=== PATIENT | male | born 1980 | race Caucasian/White ===

== ENCOUNTER 2017-08-04 23:32 | Emergency (ER) | payer OTHER ==
[2017-08-04 23:54] VITALS: BP 137/80; PULSE 90; TEMP 98.3; BMI 28.2
--- NOTE | 2017-08-05 00:26 | PDOC ---
History of Present Illness - General History Source: Patient Exam Limitations: No Limitations - History of Present Illness Initial Comments: 08/05/17 01:35 The patient is a 37-year-old male, with a significant past medical history of HTN, hypercholesterolemia, and cardioversion (2014), who presents to the ED with one month of left-sided chest pain and neck pain. Pt's chest pain has now become more constant, radiating down his left arm. He reports that he is unable to turn his neck due to pain. The patient was diagnosed with tachycardia 2 years ago and has not been on any medications. He denies any shortness of breath. He denies any fever, chills, nausea, vomiting , diarrhea, or abdominal pain. <Nicole Gilmore - Last Filed: 08/05/17 01:35> <Padma Howell - Last Filed: 08/06/17 06:30> - General Chief Complaint: Pain, Acute Stated Complaint: NECK PAIN Time Seen by Provider: 08/04/17 23:48 Past History <Nicole Gilmore - Last Filed: 08/05/17 01:35> - Past Medical History Cardiac Disorders: Yes HTN: Yes Hypercholesterolemia: Yes - Surgical History Cardiac Surgery: Yes (CARDIOVERSION) - Immunization History Td Vaccination: Yes Immunization Up to Date: Yes - Suicide/Smoking/Psychosocial Hx Smoking Status: Yes Smoking History: Never smoked Years of Tobacco Use: 0 Have you smoked in the past 12 months: No Number of Cigarettes Smoked Daily: 1 Cigars Per Day: 0 Information on smoking cessation initiated: No 'Breaking Loose' booklet given: 11/16/13 Hx Alcohol Use: No Drug/Substance Use Hx: No Substance Use Type: Alcohol, Marijuana <Padma Howell - Last Filed: 08/06/17 06:30> - Past Medical History Allergies/Adverse Reactions: Allergies Allergy/AdvReac Type Severity Reaction Status Date / Time No Known Allergies Allergy Verified 08/04/17 23:53 Home Medications: Ambulatory Orders Ibuprofen [Motrin -] 600 mg PO QID #28 tablet 08/05/17 Methocarbamol [Robaxin -] 500 mg PO TID #30 tablet 08/05/17 Review of Systems - Review of Systems Able to Perform ROS?: Yes Comments:: 08/05/17 01:35 CONSTITUTIONAL: Absent: fever, chills, diaphoresis, generalized weakness, malaise, loss of appetite HEENT: Absent: rhinorrhea, nasal congestion, throat pain, throat swelling, difficulty swallowing, mouth swelling, ear pain, eye pain, visual Changes CARDIOVASCULAR: Present: chest pain Absent: syncope, palpitations, irregular heart rate, lightheadedness, peripheral edema RESPIRATORY: Absent: cough, shortness of breath, dyspnea with exertion, orthopnea, wheezing, stridor, hemoptysis GASTROINTESTINAL: Absent: abdominal pain, abdominal distension, nausea, vomiting, diarrhea, constipation, melena, hematochezia GENITOURINARY: Absent: dysuria, frequency, urgency, hesitancy, hematuria, flank pain, genital pain MUSCULOSKELETAL: Present: neck pain, left arm pain. Absent: arthralgia, joint swelling SKIN: Absent: rash, itching, pallor HEMATOLOGIC/IMMUNOLOGIC: Absent: easy bleeding, easy bruising, lymphadenopathy, frequent infections ENDOCRINE: Absent: unexplained weight gain, unexplained weight loss, heat intolerance, cold intolerance NEUROLOGIC: Absent: headache, focal weakness or paresthesias, dizziness, unsteady gait, seizure, mental status changes, bladder or bowel incontinence PSYCHIATRIC: Absent: anxiety, depression, suicidal or homicidal ideation, hallucinations. <Nicole Gilmore - Last Filed: 08/05/17 01:35> *Physical Exam - Vital Signs Last Vital Signs Temp Pulse Resp BP Pulse Ox 98.3 F 90 20 137/80 98 08/04/17 23:53 08/04/17 23:53 08/04/17 23:53 08/04/17 23:53 08/04/17 23:53 - Physical Exam Comments: 08/05/17 01:37 GENERAL: Well developed, well nourished. Awake and alert.(+)Pt appears nervous. HEENT: Normocephalic, atraumatic. PERRLA, EOMI. No conjunctival pallor. Sclera are non- icteric. Moist mucous membranes. Oropharynx is clear. NECK: Supple. Full ROM. No JVD. Carotid pulses 2+ and symmetric, without bruits. No thyromegaly. No lymphadenopathy. CARDIOVASCULAR: Regular rate and rhythm. No murmurs, rubs, or gallops. Distal pulses are 2+ and symmetric. PULMONARY: No evidence of respiratory distress. Lungs clear to auscultation bilaterally. No wheezing, rales or rhonchi. ABDOMINAL: Soft. Non-tender. Non-distended. No rebound or guarding. No organomegaly. Normoactive bowel sounds. MUSCULOSKELETAL Normal range of motion at all joints. No bony deformities or tenderness. No CVA tenderness. EXTREMITIES: No cyanosis. No clubbing. No edema. No calf tenderness. SKIN: Warm and dry. Normal capillary refill. No rashes. No jaundice. NEUROLOGICAL: Alert, awake, appropriate. <Nicole Gilmore - Last Filed: 08/05/17 01:35> - Vital Signs Last Vital Signs Temp Pulse Resp BP Pulse Ox 98.3 F 90 20 137/80 98 08/04/17 23:53 08/04/17 23:53 08/04/17 23:53 08/04/17 23:53 08/04/17 23:53 <Padma Howell - Last Filed: 08/06/17 06:30> ED Treatment Course - LABORATORY CBC & Chemistry Diagram: 08/05/17 00:05 08/05/17 00:05 - Medications Given in the ED: ED Medications Discontinued Medications Generic Name Dose Route Start Last Admin Trade Name Etienne PRN Reason Stop Dose Admin Ibuprofen 600 mg 08/05/17 00:28 08/05/17 00:57 Motrin - PO 08/05/17 00:29 600 mg ONCE ONE Administration Methocarbamol 1,000 mg 08/05/17 00:27 08/05/17 00:57 Robaxin - PO 08/05/17 00:28 1,000 mg ONCE ONE Administration Oxycodone/Acetaminophen 2 combo 08/05/17 00:27 08/05/17 00:57 Percocet 5/325 - PO 08/05/17 00:28 2 combo ONCE ONE Administration <Nicole Gilmore - Last Filed: 08/05/17 01:35> - LABORATORY CBC & Chemistry Diagram: 08/05/17 00:05 08/05/17 00:05 <Padma Howell - Last Filed: 08/06/17 06:30> Medical Decision Making - Medical Decision Making 08/05/17 01:39 Pt comes with trapezius pain; he is worried that this could be related to his heart. Exam is normal. Labs normal, ekg and cxr normal <Padma Howell - Last Filed: 08/06/17 06:30> *DC/Admit/Observation/Transfer - Attestations Scribe Attestion: 08/05/17 01:39 Documentation prepared by Nicole Gilmore, acting as bio medical technician for Padma Howell MD. <Nicole Gilmore - Last Filed: 08/05/17 01:35> - Discharge Dispostion Admit: No <Padma Howell - Last Filed: 08/06/17 06:30> Diagnosis at time of Disposition: Chest pain, Atypical chest pain - Discharge Dispostion Disposition: HOME Condition at time of disposition: Stable - Prescriptions Prescriptions: Ibuprofen [Motrin -] 600 mg PO QID #28 tablet Methocarbamol [Robaxin -] 500 mg PO TID #30 tablet - Patient Instructions Printed Discharge Instructions: Muscle Strain, DI for Atypical Chest Pain
[2017-08-05] MEDS ORDERED: METHOCARBAMOL 500 MG TABLET PO ONE (00:27)
[2017-08-05] MEDS ORDERED: IBUPROFEN 600 MG TABLET (FP) PO ONE ×2 (00:28→00:42)
[2017-08-05] MEDS ORDERED: METHOCARBAMOL 500 MG TABLET ONE (00:42)
[2017-08-05 01:15] LABS: BASO % 0.6 % (0-2.0); EOS # 0.2 # (0-4.5); EOS % 2.3 % (0-4.5); LYMPH # 2.1 (8-40); MCHC 33.5 g/dl (32.0-35.9); MEAN CELL VOLUME 83.5 fl (80-96); MEAN PLT VOLUME 10.4 fl (7.5-11.1); MONO # 0.5 # (3.8-10.2); NEUT # 4.3 # (42.8-82.8); NEUT % 60.3 % (42.8-82.8); PLATELET COUNT 166 K/MM3 (134-434); RDW 13.2 % (11.9-15.9); WHITE BLOOD COUNT 7.1 K/mm3 (4.0-10.0)
[2017-08-05 01:38] LABS: INR 1.04 (0.82-1.09); PROTHROMBIN TIME (PATIENT) 11.8 SEC (9.98-11.88)
[2017-08-05 01:43] LABS: ANION GAP 6 (8-16); BILIRUBIN,TOTAL 0.4 mg/dL (0.2-1.0); CALCIUM 8.9 mg/dL (8.5-10.1); CO2 29 mmol/L (21-32); CREATININE 0.9 mg/dL (0.7-1.3); GLUCOSE,RANDOM 110 mg/dL (74-106); SGOT/AST 13 U/L (15-37); SGPT/ALT 20 U/L (12-78); TOT PROT 6.8 g/dl (6.4-8.2)
[2017-08-05 01:46] LABS: ALK PHOS 85 U/L (45-117); CPK 169 IU/L (39-308); TROPONIN I < 0.02 ng/ml (0.00-0.05)
--- NOTE | 2017-08-05 16:30 | EKG ---
Test Reason : Blood Pressure : / mmHG Vent. Rate : 076 BPM Atrial Rate : 076 BPM P-R Int : 120 ms QRS Dur : 104 ms QT Int : 368 ms P-R-T Axes : 061 -24 003 degrees QTc Int : 414 ms NORMAL SINUS RHYTHM WITH SINUS ARRHYTHMIA NONSPECIFIC T WAVE ABNORMALITY ABNORMAL ECG WHEN COMPARED WITH ECG OF 11-FEB-2014 01:27, NO SIGNIFICANT CHANGE WAS FOUND Confirmed by REJI NEW MD ([id number]) on 08/05/2017 4:30:09 PM Referred By: Confirmed By:REJI NEW MD
== END 2017-08-05 03:12 | disposition home or self-care (01) ==
LOC: JER 23:32
DX: R07.89 Other chest pain (principal); I10 Essential (primary) hypertension; E78.00 Pure hypercholesterolemia, unspecified
CPT/HCPCS: 36415; 71020-TC; 73030-TC-LT; 80053; 82550; 82553; 84484; 85025; 85610; 93005; 93010; 99283-25

== ENCOUNTER 2017-08-15 20:43 | Emergency (ER) | payer OTHER ==
--- NOTE | 2017-08-15 21:00 | PDOC ---
Rapid Medical Evaluation Time Seen by Provider: 08/15/17 21:00 Medical Evaluation: Allergies Allergy/AdvReac Type Severity Reaction Status Date / Time No Known Allergies Allergy Verified 08/04/17 23:53 08/15/17 21:00 I have performed a brief in-person evaluation of this patient. The patient presents with a chief complaint of: Neck and L arm pain x 1 month. Dx w/ muscle pain 08/04/17 and given motrin and robaxin but meds does not help. Had neg shoulder film on last visit Pertinent physical exam findings:Exam unremarkable I have ordered the following: nothing The patient will proceed to the ED for further evaluation. 08/15/17 21:02
[2017-08-15 21:06] VITALS: BP 134/52; PULSE 99; TEMP 98.7; BMI 28.8
--- NOTE | 2017-08-15 21:37 | PDOC ---
History of Present Illness - General Chief Complaint: Cold Symptoms Stated Complaint: Cold Symptoms/ PAIN Time Seen by Provider: 08/15/17 21:00 History Source: Patient Exam Limitations: No Limitations - History of Present Illness Initial Comments: 08/15/17 21:40 37-year-old male with no medical history presents to the emergency department complaining of pain to the left trapezius muscle 4 weeks. Patient states he was cracking his neck 8 weeks ago and felt a slight discomfort to the left trapezius. Pain was described as 4/10 dull nonradiating intermittent discomfort without extremity numbness or tingling sensation, bladder or bowel dysfunction. Patient states the pain is exacerbated when he attempts to crack his neck but alleviated at rest. Patient denies headache, dizziness, lightheadedness, facial pains, neck stiffness, pain, back pains, chest pain, shortness of breath. Patient had an appointment with his PMD 3 days ago but canceled the appointment due to flu-like symptoms. Patient states he was given Percocet, Robaxin and Motrin for pain which alleviated his symptoms. Patient presents to the emergency department today for more pain medication. Patient presents today hoping to get an MRI because his friends told him that when you come to the emergency department, everyone with pain will get an MRI. Occurred: reports: other (x4 weeks) Pain Location: reports: other (left trapezius) Method of Injury: Yes: other (turning his neck x4 weeks ago) Past History - Past Medical History Allergies/Adverse Reactions: Allergies Allergy/AdvReac Type Severity Reaction Status Date / Time No Known Allergies Allergy Verified 08/15/17 21:06 Home Medications: Ambulatory Orders Ketorolac Tromethamine [Toradol] 10 mg PO TID #12 tablet 08/15/17 Cardiac Disorders: Yes (SVT) COPD: No HTN: Yes Hypercholesterolemia: Yes - Surgical History Cardiac Surgery: Yes (CARDIOVERSION) - Immunization History Td Vaccination: Yes Immunization Up to Date: Yes - Suicide/Smoking/Psychosocial Hx Smoking Status: Yes Smoking History: Never smoked Years of Tobacco Use: 0 Have you smoked in the past 12 months: No Number of Cigarettes Smoked Daily: 1 Cigars Per Day: 0 Information on smoking cessation initiated: No 'Breaking Loose' booklet given: 11/16/13 Hx Alcohol Use: No Drug/Substance Use Hx: No Substance Use Type: Alcohol, Marijuana *Physical Exam - Vital Signs Last Vital Signs Temp Pulse Resp BP Pulse Ox 98.7 F 99 H 18 134/52 0 L 08/15/17 21:03 08/15/17 21:03 08/15/17 21:03 08/15/17 21:03 08/15/17 21:03 Progress Note - Progress Note Progress Note: 37-year-old male with no medical history presents complaining of left-sided trapezius muscle strain 4 weeks ago. Patient was seen on 08/04/2017. Patient had an x-ray of the left shoulder, chest x-ray. All was NAD. Patient had an appointment with his PMD 3 days ago but canceled it due to flulike symptoms but will reschedule it again tomorrow. Patient returns to the emergency department for narcotics and a possible MRI. I explained to the patient he needs to follow with a specialist or his PMD and they will order an MRI if it is warranted. I will not be giving him narcotics but I can send a prescription for Toradol to the local pharmacy for him.Pt agrees with the plan. *DC/Admit/Observation/Transfer Diagnosis at time of Disposition: Muscle strain - Discharge Dispostion Disposition: HOME Condition at time of disposition: Stable Admit: No - Prescriptions Prescriptions: Ketorolac Tromethamine [Toradol] 10 mg PO TID #12 tablet - Referrals Referrals: Rolando Kolb MD [Staff Physician] - - Patient Instructions Printed Discharge Instructions: Muscle Strain Additional Instructions: Rest Tylenol for mild pain Toradol 10mg take 1 tablet by mouth three times a day for severe pain Follow up with Orthopedics/Dr. Kolb Return to the ED for severe/persistent/worsening symptoms It is imperative that you make the follow-up appointment with your doctor and orthopedic surgeon tomorrow. - Post Discharge Activity
== END 2017-08-15 22:06 | disposition home or self-care (01) ==
LOC: JERFT 20:43
DX: S16.1XXA Strain of muscle, fascia and tendon at neck level, initial encounter (principal); X58.XXXA Exposure to other specified factors, initial encounter; Y93.89 Activity, other specified; Y92.9 Unspecified place or not applicable; I10 Essential (primary) hypertension; I47.1 Supraventricular tachycardia; E78.00 Pure hypercholesterolemia, unspecified
CPT/HCPCS: 99281-25

== ENCOUNTER 2019-05-15 20:28 | Observation (INO) | payer SELFPAY ==
[2019-05-15] MEDS ORDERED: ASPIRIN 81 MG CHEWABLE TABLETS PO ONE (20:42)
--- NOTE | 2019-05-15 20:43 | PDOC ---
Rapid Medical Evaluation Time Seen by Provider: 05/15/19 20:41 Medical Evaluation: Allergies Allergy/AdvReac Type Severity Reaction Status Date / Time No Known Allergies Allergy Verified 08/15/17 21:06 05/15/19 20:42 CC: Intermittent left sided CP with dizziness. PE: reproducible pain to left ACW. RRR. No m/r/g. Orders: cardiac w/u Patient will proceed to ER for further evaluation. Discharge Disposition - Diagnosis Chest pain - Referrals - Patient Instructions - Post Discharge Activity
[2019-05-15 21:09] LABS: BASO % 0.6 % (0-2.0); EOS % 3.7 % (0-4.5); HEMATOCRIT 40.1 % (35.4-49); HEMOGLOBIN 13.3 GM/dL (11.7-16.9); MCH 28.1 pg (25.7-33.7); MCHC 33.1 g/dl (32.0-35.9); MEAN CELL VOLUME 84.8 fl (80-96); MEAN PLT VOLUME 9.8 fl (7.5-11.1); MONO % 7.9 % (3.8-10.2); NEUT % 49.8 % (42.8-82.8); PLATELET COUNT 158 K/MM3 (134-434); RBC 4.73 M/mm3 (4.00-5.60); RDW 12.9 % (11.9-15.9); WHITE BLOOD COUNT 5.5 K/mm3 (4.0-10.0)
[2019-05-15 21:20] LABS: INR 0.95 (0.83-1.09); PROTHROMBIN TIME (PATIENT) 11.2 SEC (9.7-13.0)
--- NOTE | 2019-05-15 21:26 | PDOC ---
History of Present Illness - General Chief Complaint: Chest Pain Stated Complaint: CHEST PAINS/HEADACHE/DIZZINESS Time Seen by Provider: 05/15/19 20:41 Past History - Past Medical History Allergies/Adverse Reactions: Allergies Allergy/AdvReac Type Severity Reaction Status Date / Time No Known Allergies Allergy Verified 05/15/19 20:49 Home Medications: Ambulatory Orders NK [No Known Home Medication] 05/16/19 Cardiac Disorders: Yes (SVT) COPD: No HTN: Yes Hypercholesterolemia: Yes - Surgical History Cardiac Surgery: Yes (CARDIOVERSION) - Immunization History Td Vaccination: Yes Immunization Up to Date: Yes - Psycho Social/Smoking Cessation Hx Smoking Status: Yes Smoking History: Never smoked Years of Tobacco Use: 0 Have you smoked in the past 12 months: No Number of Cigarettes Smoked Daily: 1 Cigars Per Day: 0 Information on smoking cessation initiated: No 'Breaking Loose' booklet given: 11/16/13 Hx Alcohol Use: No Drug/Substance Use Hx: No Substance Use Type: Alcohol, Marijuana *Physical Exam - Vital Signs Last Vital Signs Temp Pulse Resp BP Pulse Ox 98.3 F 76 17 125/75 98 05/15/19 20:30 05/15/19 20:30 05/15/19 20:30 05/15/19 20:30 05/15/19 20:30 Heart Score/ECG Review - History History: Moderately suspicious - Electrocardiogram EKG: Normal - Age Age: </= 45 - Risk Factors Risk Factors Heart Score: Yes Hx Hypercholesterolemia, Yes Hx Hypertension, Yes Positive family hx of cardiac disease Based on the list above the patient has:: >/=3 risk factors or Hx atherosclerotic disease - Troponin Troponin: </= normal limit - Score Heart Score - Total: 3 ED Treatment Course - LABORATORY CBC & Chemistry Diagram: 05/15/19 20:52 05/15/19 20:52 - ADDITIONAL ORDERS Additional order review: Laboratory Results 05/15/19 20:52 PT with INR 11.20 INR 0.95 05/15/19 20:52 RBC 4.73 MCV 84.8 MCHC 33.1 RDW 12.9 MPV 9.8 Neutrophils % 49.8 Lymphocytes % 38.0 D Monocytes % 7.9 Eosinophils % 3.7 Basophils % 0.6 Medical Decision Making - Medical Decision Making HPI: 39yo M with PMH of HTN, HLD, abnormal heart rhythm presenting with chest pain. Patient states he has not been on anti-hypertensives for the past two years and has not seen his primary care physician in a year and a half. He was cardioverted in 2013 for afib with rvr and since that time has had intermittent chest pains. States he has had previous stress test and ECHO which "were not good." Presenting today from urgent care because his chest pain was more severe than usual and also associated with dizziness and diaphoresis. Pain is described as "sharp" on the left side of his chest and rated 7/10. He had pain at 3pm and also when he came to the ED, each lasting about three to five minutes and going away on their own. Does not know what makes his pain better or worse. Grandmother had an HI at age 65. No hemoptysis, no recent surgical history, no recent immobilization, no hormone use, no history of DVT or PE. Denies fever or chills. PCP: Dr. El Cardio: Does not follow with anyone currently ROS: Constitutional: no fever, +diaphoresis HEENT: no throat pain, no dysphagia Cardiovascular: +chest pain, no palpitations Respiratory: no cough, no shortness of breath Gastrointestinal: no abdominal pain, no nausea Genitourinary: no dysuria, no hematuria Musculoskeletal: no myalgia, no arthralgia Skin: no rash, no itching Neurologic: no headache, no weakness PE: General: Awake, alert, and fully oriented, in no acute distress Head: No signs of trauma Eyes: EOMI, sclera anicteric ENT: Moist mucus membranes Neck: Normal ROM, supple Lungs: Lungs clear, Normal breath sounds Cardio: Regular rhythm, S1 and S2 present, +chest wall tenderness upon palpation Abdomen: Soft, nontender. No guarding, no rebound, no masses Extremities: Normal range of motion, Distal pulses present, No calf tenderness SKIN: Warm, Dry, normal turgor Neurologic: Cranial nerves II through XII grossly intact. Normal speech ED Course/MDM: DDX including but not limited to ACS, PE, PNA, anemia, metabolic derangement Labs, EKG, CXR ASA EKG: rate 69, Qtc 411, NSR with sinus arrhythmia, new t wave inversion in lead III when compared to EKG in 2017 PERC negative: I have a low suspicion for DVT/PE 05/15/19 21:26 CBC WBC 5.5 K/mm3 (4.0-10.0) 05/15/19 20:52 RBC 4.73 M/mm3 (4.00-5.60) 05/15/19 20:52 Hgb 13.3 GM/dL (11.7-16.9) 05/15/19 20:52 Hct 40.1 % (35.4-49) 05/15/19 20:52 MCV 84.8 fl (80-96) 05/15/19 20:52 MCH 28.1 pg (25.7-33.7) 05/15/19 20:52 MCHC 33.1 g/dl (32.0-35.9) 05/15/19 20:52 RDW 12.9 % (11.9-15.9) 05/15/19 20:52 Plt Count 158 K/MM3 (134-434) 05/15/19 20:52 MPV 9.8 fl (7.5-11.1) 05/15/19 20:52 Absolute Neuts (auto) 2.8 K/mm3 (1.5-8.0) 05/15/19 20:52 Neutrophils % 49.8 % (42.8-82.8) 05/15/19 20:52 Lymphocytes % 38.0 % (8-40) D 05/15/19 20:52 Monocytes % 7.9 % (3.8-10.2) 05/15/19 20:52 Eosinophils % 3.7 % (0-4.5) 05/15/19 20:52 Basophils % 0.6 % (0-2.0) 05/15/19 20:52 Nucleated RBC % 0 % (0-0) 05/15/19 20:52 No leukocytosis CMP Sodium 140 mmol/L (136-145) 05/15/19 20:52 Potassium 4.3 mmol/L (3.5-5.1) 05/15/19 20:52 Chloride 106 mmol/L (98-107) 05/15/19 20:52 Carbon Dioxide 29 mmol/L (21-32) 05/15/19 20:52 Anion Gap 5 MMOL/L (8-16) L 05/15/19 20:52 BUN 24.9 mg/dL (7-18) H 05/15/19 20:52 Creatinine 1.5 mg/dL (0.55-1.3) H 05/15/19 20:52 Est GFR (CKD-EPI)AfAm 66.07 05/15/19 20:52 Est GFR (CKD-EPI)NonAf 57.01 05/15/19 20:52 Random Glucose 110 mg/dL (74-106) H 05/15/19 20:52 Calcium 8.9 mg/dL (8.5-10.1) 05/15/19 20:52 Magnesium 2.2 mg/dL (1.8-2.4) 05/15/19 20:52 Total Bilirubin 0.3 mg/dL (0.2-1) 05/15/19 20:52 AST 11 U/L (15-37) L 05/15/19 20:52 ALT 18 U/L (13-61) 05/15/19 20:52 Alkaline Phosphatase 96 U/L (45-117) 05/15/19 20:52 Creatine Kinase 192 U/L (26-308) 05/15/19 20:52 Creatine Kinase Index 0.7 % (0.0-5.0) 05/15/19 20:52 CK-MB (CK-2) 1.5 ng/mL (0.5-3.6) 05/15/19 20:52 Troponin I < 0.02 ng/ml (0.00-0.05) 05/15/19 20:52 Total Protein 6.5 g/dl (6.4-8.2) 05/15/19 20:52 Albumin 4.0 g/dl (3.4-5.0) 05/15/19 20:52 Electrolytes unremarkable Cr elevated Tpn undetectable CXR without acute pathology, my impression 05/15/19 22:47 HEART score is 3, however, given patient's prior cardiac history and poor reliability (lost to follow-up and had not seen a physician in a year and a half ), I would like to admit him for telemetry observation. I have suspicion for cardiac ischemia which requires further immediate evaluation such as stress testing, ECHO, and repeat laboratory testing to clarify diagnosis. Discussed case with Dr. Barros who accepted patient for tele obs under Dr. Melendez 05/15/19 23:56 Discharge - Discharge Information Problems reviewed: Yes Clinical Impression/Diagnosis: Chest pain Qualifiers: Chest pain type: unspecified Qualified Code(s): R07.9 - Chest pain, unspecified Condition: Guarded - Admission Yes - Follow up/Referral - Patient Discharge Instructions - Post Discharge Activity
[2019-05-15 21:33] LABS: ALK PHOS 96 U/L (45-117); ANION GAP 5 MMOL/L (8-16); BILIRUBIN,TOTAL 0.3 mg/dL (0.2-1); BLOOD UREA NITROGEN 24.9 mg/dL (7-18); CALCIUM 8.9 mg/dL (8.5-10.1); CHLORIDE 106 mmol/L (98-107); CO2 29 mmol/L (21-32); CREATININE 1.5 mg/dL (0.55-1.3); GLUCOSE,RANDOM 110 mg/dL (74-106); MAGNESIUM 2.2 mg/dL (1.8-2.4); POTASSIUM 4.3 mmol/L (3.5-5.1); SGOT/AST 11 U/L (15-37); SGPT/ALT 18 U/L (13-61); SODIUM 140 mmol/L (136-145); TOT PROT 6.5 g/dl (6.4-8.2)
--- NOTE | 2019-05-15 21:51 | PDOC ---
Attending Attestation - Resident Resident Name: Layo Mith - ED Attending Attestation I have performed the following: I have examined & evaluated the patient, The case was reviewed & discussed with the resident, I agree w/resident's findings & plan - HPI HPI: 05/16/19 00:04 see resident hpi - Physicial Exam PE: 05/16/19 00:04 agree with resident exam - Medical Decision Making 05/16/19 00:04 39 yo male with left CP History of hypertension and hypercholesterolemia EKG shows a normal sinus rhythm at 69 bpm with no acute ST segment elevation Chest pain is nonreproducible and persistent in the emergency department We will admit for observation
[2019-05-15] MEDS ORDERED: ASPIRIN 81 MG CHEWABLE TABLETS ONE (22:26)
[2019-05-16] MEDS ORDERED: ACETAMINOPHEN 1000 MG/100 ML VIAL (NON FORMULARY) IVPB ONE (00:04)
[2019-05-16] MEDS ORDERED: SODIUM CHLORIDE 1,000 ML IV SCH ×3 (00:30→07:00)
--- NOTE | 2019-05-16 00:32 | HP ---
CHIEF COMPLAINT: PCP: Dr. El HISTORY OF PRESENT ILLNESS: 39 y/o/m with PMHx of HTN, HLD, history of cardioversion for afib w/RVR here for chest pain. Patient states he was at work and started to have chest pain at 0900. He felt dizzy when he was having chest pain. He left work and came home at that time. He was not feeling well and decided to go to urgent care. He had a normal EKG at urgent care but was told to go to ED due to his cardiac history. He states ever since he was cardioverted he has had intermittent chest pain which usually resolves within a few minutes without intervention. For the last 2 weeks he has had worsening chest pain. The chest pain is left sided, pinching, and intermittent. He complained of sweating today as well associated with the chest pain. He had the pain again at 1500 and when he came to the ED. He has had an ECHO in the past but does not recall the results, he does not recall having a stress test. He was previously on HTN medications and a blood thinner but stopped taking them himself because he felt well. He denies any SOB , fever, chills, N/V/D, numbness, fall, LOC. ER course was notable for: (1) EKG: rate 69, Qtc 411, NSR with sinus arrhythmia, new t wave inversion in lead III when compared to EKG in 2017 (2) CXR negative for acute pathology Recent Travel: none PAST MEDICAL HISTORY: HTN, HLD, afib w/ RVR PAST SURGICAL HISTORY: denies Social History: Smoking: never Alcohol: social EtOH Drugs: Marijuana - 1 joint a day Works in construction, lives at home with family. FamHx: Grandmother passed from PA at 65. Mom passed from Colon Cancer at 45. Father passed long time ago, cancer of unknown origin Allergies No Known Allergies Allergy (Verified 05/15/19 20:49) HOME MEDICATIONS: Home Medications Medication Instructions Recorded NK [No Known Home Medication] 05/16/19 REVIEW OF SYSTEMS Constitutional: sweating, weakness. denies weakness, fever, chills HEENT: denies sore throat, vision changes, congestion, neck pain, jaw pain Cardio: chest pain, lightheadedness. denies palpitations Resp: denies SOB, wheezing, chest tightness GI: denies abd pain, N/V/D, constipation MSK: denies back pain, joint pain SKIN: denies rashes Neuro: denies seizures, loss of consciousness, numbness, tingling Psych: denies anxiety PHYSICAL EXAMINATION Vital Signs - 24 hr 05/15/19 20:30 Temperature 98.3 F Pulse Rate 76 Respiratory 17 Rate Blood Pressure 125/75 O2 Sat by Pulse 98 Oximetry (%) GENERAL: Awake, alert, and fully oriented, in no acute distress. HEAD: NC/AT EYES: PERRL, EOMI EARS, NOSE, THROAT: nares patent, oropharynx clear without exudates. Moist mucous membranes. NECK: Normal range of motion, supple without lymphadenopathy, JVD, or masses. LUNGS: Breath sounds equal, clear to auscultation bilaterally. No wheezes, and no crackles. No accessory muscle use. HEART: Regular rate and rhythm, normal S1 and S2 without murmur, rub or gallop. ABDOMEN: Soft, nontender, not distended, normoactive bowel sounds, no guarding, no rebound, no masses MUSCULOSKELETAL: reproducible chest pain on palpation of left pectoral muscle. Normal range of motion at all joints. No CVA tenderness. No midline tenderness to palpation of the spine UPPER EXTREMITIES: 2+ pulses, warm, well-perfused. No cyanosis. No clubbing. No peripheral edema. LOWER EXTREMITIES: 2+ pulses, warm, well-perfused. No calf tenderness. No peripheral edema. NEUROLOGICAL: Normal speech. 5/5 strength upper and lower extremities. PSYCHIATRIC: Cooperative. Good eye contact. Appropriate mood and affect. SKIN: Warm, dry, normal turgor, no rashes or lesions noted, normal capillary refill. Laboratory Results - last 24 hr 05/15/19 05/15/19 05/15/19 20:52 20:52 20:52 WBC 5.5 RBC 4.73 Hgb 13.3 Hct 40.1 MCV 84.8 MCH 28.1 MCHC 33.1 RDW 12.9 Plt Count 158 MPV 9.8 Absolute Neuts (auto) 2.8 Neutrophils % 49.8 Lymphocytes % 38.0 D Monocytes % 7.9 Eosinophils % 3.7 Basophils % 0.6 Nucleated RBC % 0 PT with INR 11.20 INR 0.95 Sodium 140 Potassium 4.3 Chloride 106 Carbon Dioxide 29 Anion Gap 5 L BUN 24.9 H Creatinine 1.5 H Est GFR (CKD-EPI)AfAm 66.07 Est GFR (CKD-EPI)NonAf 57.01 Random Glucose 110 H Calcium 8.9 Magnesium 2.2 Total Bilirubin 0.3 AST 11 L ALT 18 Alkaline Phosphatase 96 Creatine Kinase 192 Creatine Kinase Index 0.7 CK-MB (CK-2) 1.5 Troponin I < 0.02 Total Protein 6.5 Albumin 4.0 Imaging: CXR - negative for acute pathology ASSESSMENT/PLAN: 39 y/o/m with PMHx of HTN, HLD, history of cardioversion for afib w/RVR here for intermittent left sided chest pain. 1)Chest pain -Trops negative x2 -EKG with no acute ischemic changes -Echocardiogram to evaluate cardiac function -left ventricular systolic function severely reduced on previous Echo in 2013 -Can consider cardio consult -Patient admits to some illicit drug use - holding of on Beta Orquidea due to positive cocaine in Utox -NPO in case there is a need for cardiac cath -Aspirin given in ED -Holding off on SHARRON due to elevated kidney function 2)Elevated BUN/Cr -IVF -urine electrolytes 3)Prophylaxis -Heparin 4)FEN -NS @ 100mls/hr -NPO 5)Disposition -Tele Obs Visit type - Emergency Visit Emergency Visit: Yes ED Registration Date: 05/15/19 Care time: The patient presented to the Emergency Department on the above date and was hospitalized for further evaluation of their emergent condition. - New Patient This patient is new to me today: Yes Date on this admission: 05/16/19 - Critical Care Critical Care patient: No ATTENDING PHYSICIAN STATEMENT I saw and evaluated the patient. I reviewed the resident's note and discussed the case with the resident. I agree with the resident's findings and plan as documented. SUBJECTIVE: OBJECTIVE: ASSESSMENT AND PLAN:
--- NOTE | 2019-05-16 01:57 | PN ---
Teaching Attending Note Name of Resident: Umair Pretty ATTENDING PHYSICIAN STATEMENT I saw and evaluated the patient. I reviewed the resident's note and discussed the case with the resident. I agree with the resident's findings and plan as documented. SUBJECTIVE: 39 yo m with hx of polysubstance abuse- cocaine, etoh, weed, systolic chf- on echo 2013, HTN, HLD, cardioversion for afib w/RVR, previously on ac, but reports it was d/c-ed by his outside sliver cutter, c/o intermittent chest pain last a few seconds, reproducible. Started around 4pm in afternoon, prompted him to come to ER. NO SOB or exercise intolerance. Denied recent cocaine or etoh abuse. Has been noncompliant, not taking any meds despite his reduced EF. OBJECTIVE: Last Vital Signs Temp Pulse Resp BP Pulse Ox 98.3 F 88 18 126/114 H 98 05/15/19 20:30 05/15/19 23:56 05/15/19 23:56 05/15/19 23:56 05/15/19 23:56 gen - nad neck -no jvd chest -clear cv-s1+s2+rrr ext - no pedal edema Abnormal Lab Results 05/15/19 20:52 Anion Gap 5 L BUN 24.9 H Creatinine 1.5 H Random Glucose 110 H AST 11 L ekg - sinus rhythm, no acute ischemic changes, left axis deviation ASSESSMENT AND PLAN: 39yo man with atypical chest pain. Prior severely reduced systolic function in 2013- may be secondary to etoh or cocaine abuse. Grandmother with CAD suggests possible familial component. Never had cardiac cath. CASA. -tele-obs -trend trops -counseled to not use cocaine and etoh -repeat echo -patti-i once casa resolves -urine toxicology- if neg for coke, can start b-lesly -gentle iv fluid hydration for casa -avoid neohrotoxins -cardiac stress test -consider cardiac cath to r/o cad -consider cardiology evaluation -pt reports he was taken off AC by his sliver cutter -dvt ppx
[2019-05-16 02:30] LABS: METHADONE, UR NEGATIVE ng/ml (CUTOFF=300); OPIATES, URI NEGATIVE ng/ml (CUTOFF=300); PHENCYCLIDINE,URINE NEGATIVE ng/ml (CUTOFF=25); URINE AMPHETAMINES NEGATIVE ng/ml (CUTOFF=500); URINE BARBITURATES NEGATIVE ng/ml (CUTOFF=200); URINE BENZODIAZEPINES NEGATIVE ng/ml (CUTOFF=200)
[2019-05-16 02:34] LABS: COCAINE, UR POSITIVE ng/ml (CUTOFF=300)
[2019-05-16 05:01] VITALS: BMI 29.4
[2019-05-16] MEDS: HEPARIN NA (PORCINE) 5,000 UNITS/ML 1ML VIAL SQ SCH ×3 (06:14→22:01)
[2019-05-16 06:33] LABS: ANION GAP 4 MMOL/L (8-16); BLOOD UREA NITROGEN 21.8 mg/dL (7-18); CALCIUM 8.6 mg/dL (8.5-10.1); CHLORIDE 108 mmol/L (98-107); CO2 30 mmol/L (21-32); GLUCOSE,RANDOM 107 mg/dL (74-106); POTASSIUM 3.8 mmol/L (3.5-5.1); SODIUM 142 mmol/L (136-145)
--- NOTE | 2019-05-16 09:44 | CON.CARD ---
Consult Consult Specialty:: cardio - History of Present Illness Chief Complaint: cp History of Present Illness: 39 M here with CP. initially felt CP while at work around 9am on DOA. + assctd dizzy/diaphoresis. He left work and went home to rest. reports intermittent chest pain for past several yrs, which usually resolves within a few minutes without intervention. For the last 2 weeks he has had incr frequency of this longstanding sx--but no change in pain features. second episode yest around 3pm so came to ER. pain non-radiating. well localized (3 fingerbreadths) in L axillary line. resolves after 5-6 seconds. never CP during exertion, walking. no sob either. admits to cocaine last approx 4d [employer]. Utox positive here. denies heavy etoh in recent past. pt was here 2013 with strong CP and dizziness due to atrial flutter. had HAFSA guided cardioversion then, treated with AC. pt states he was sent on AC and "bp med" for arrhythmia--both stopped by outpt cardio ([facility]?) eventually. that dr has left, no cardio f/u since. known h/o at that time of cocaine and etoh abuse. also hypertriglyceridemia h/o HTN--not on meds recently - Past Medical History Cardio/Vascular: Yes: Hyperlipdemia. No: AFIB, Aneurysm, Aortic Insufficiency, Aortic Stenosis, CAD, CHF, Deep Vein Thrombosis, HTN, DE, Mitral Insufficiency, Mitral Stenosis, Murmur, Pulmonary Hypertension, Other Psych: Yes: Other (Chronic insomnia) - Past Surgical History Past Surgical History: Yes: None - Alcohol/Substance Use Hx Alcohol Use: No History of Substance Use: reports: Cocaine (past), Marijuana. denies: Heroin - Smoking History Smoking history: Never smoked Have you smoked in the past 12 months: No Aproximately how many cigarettes per day: 1 - Social History Usual Living Arrangement: With Spouse ADL: Independent History of Recent Travel: No Home Medications - Allergies Allergies/Adverse Reactions: Allergies Allergy/AdvReac Type Severity Reaction Status Date / Time No Known Allergies Allergy Verified 05/15/19 20:49 - Home Medications Home Medications: Ambulatory Orders NK [No Known Home Medication] 05/16/19 Family Medical History Family History: Denies (no known cmp) Review of Systems - Review of Systems Constitutional: denies: Chills, Fever Eyes: denies: Eye Pain HENT: denies: Nasal Congestion Neck: denies: Stiffness Cardiovascular: denies: Palpitations Respiratory: denies: Orthopnea, PND Gastrointestinal: denies: Diarrhea, Rectal Bleeding Genitourinary: denies: Burning, Hematuria Musculoskeletal: denies: Muscle Pain Integumentary: denies: Rash Neurological: denies: Numbness, Seizure, Syncope Endocrine: denies: Excessive Sweating Hematology/Lymphatic: denies: Excessive Bleeding Vital Signs: Vital Signs Temperature 98.4 F 05/16/19 04:22 Pulse Rate 70 05/16/19 04:22 Respiratory Rate 18 05/16/19 04:22 Blood Pressure 135/78 05/16/19 04:22 O2 Sat by Pulse Oximetry (%) 98 05/16/19 03:00 Constitutional: Yes: Well Nourished, No Distress Eyes: No: Sclera Icterus HENT: No: Nasal Congestion Neck: No: Decreased ROM Respiratory: Yes: CTA Bilaterally. No: Accessory Muscle Use, Rales, Wheezes Gastrointestinal: Yes: Normal Bowel Sounds. No: Distention, Hepatomegaly, Palpable Mass, Tenderness Cardiovascular: Yes: Regular Rate and Rhythm JVD: No Carotid Bruit: No PMI: Non-Displaced Heart Sounds: Yes: S1, S2. No: Gallop Murmur: No: Systolic Murmur, Diastolic Murmur Musculoskeletal: Yes: Other (No kyphosis) Extremities: No: Cool, Cyanosis Edema: No Peripheral Pulses: 2+ Left Carotid, 2+ Right Carotid, 2+ Left Doralis Pedis, 2+ Right Dorsalis Pedis Integumentary: No: Jaundice Neurological: Yes: Alert, Oriented (x3) Psychiatric: No: Agitated - Other Data Labs, Other Data: CBC, BMP 05/15/19 20:52 05/16/19 05:41 INR, PTT INR 0.95 (0.83-1.09) 05/15/19 20:52 Troponin, BNP 05/15/19 05/16/19 05/16/19 20:52 00:00 05:41 Troponin I < 0.02 < 0.02 < 0.02 Troponin, BNP 05/15/19 05/16/19 05/16/19 20:52 00:00 05:41 Troponin I < 0.02 < 0.02 < 0.02 Assessment/Plan echo 2014: severe, global LV hypo. mild-mod RV hypo. no signif valve abnormality CXR: clear lungs/pleura ECG: NSR, LAFB, no path q's, no ST-T abn--no change vs prior 2017 tele: NSR chest pain: -low suspicion for PE based on very atypical sx's, not tachycardic or hypoxic -trop neg x 3. ECG nonischemic. -localization and fleeting duration of sx's, occuring at rest, and chronic/ unchanged for yrs makes obstructive CAD extremely unlikely, sx's not suggestive of cocaine induced coronary spasm -no inpt stress test given Utox + (risks of precipitating vasopasm). -rec outpt cardio f/u cardiomyopathy (2013)--? tachy vs etoh then: -no signs chf here, no sx's at home -rpt echo here -outpt cardio f/u h/o atrial flutter: -sinus rhythm here -CHADS VASC 1-2 (h/o HTN?)--AC and "bp med" (AVN lesly?) ultimately d/c'd by outpt cardio -outpt cardio f/u rec'd etoh, counselled abuse: -cardiac and non-cardiac risks reviewed, cessation counselled HPL/TGs: -home meds not reconciled -check lipid panel HTN: -not on meds currently -BP transiently elevated in ER--now normal -observe trend
--- NOTE | 2019-05-16 12:12 | ECHO ---
Name: YULIET VERGARA Exam:Adult Echocardiogram Study Date: 05/16/2019 08:27 AM Age: 39 yrs Reason For Study: EVALUATE CARDIAC FUNCTION Height: 74 in Weight: 215 lb BSA: 2.2 m2 MMode/2D Measurements & Calculations IVSd: 0.98 cm Ao root diam: 2.7 cm LVIDd: 5.2 cm LA dimension: 3.8 cm LVIDs: 3.5 cm LVPWd: 0.98 cm EDV(Teich): 127.8 ml LVOT diam: 2.1 cm ESV(Teich): 51.7 ml Doppler Measurements & Calculations MV E max fernando: 81.4 cm/sec Ao V2 max: 112.9 cm/sec MV A max fernando: 55.3 cm/sec Ao max P.1 mmHg MV E/A: 1.5 MV dec time: 0.23 sec STUART(V,D): 1.5 cm2 LV V1 max P.97 mmHg TR max fernando: 154.2 cm/sec LV V1 max: 49.4 cm/sec TR max P.6 mmHg PA V2 max: 71.9 cm/sec PI end-d fernando: 90.9 cm/sec PA max P.1 mmHg Med Peak E' Fernando: 7.7 cm/sec Med E/e': 10.6 Lat Peak E' Fernando: 10.9 cm/sec Lat E/e': 7.5 Left Ventricle The left ventricle is borderline dilated. Ejection Fraction = 35-40%. Left ventricular systolic funct ion is mild to moderately reduced. There is mild to moderate global hypokinesis of the left ventricle. Right Ventricle The right ventricle is grossly normal size. The right ventricular systolic function is borderline red uced. Atria The left atrial size is normal. The right atrium is borderline dilated. There is no Doppler evidence for an atrial septal defect. Mitral Valve There is mild mitral valve thickening. There is mild mitral annular calcification. There is trace to mild mitral regurgitation. Tricuspid Valve There is mild to moderate tricuspid regurgitation. Right ventricular systolic pressure is normal. Pulmonic Valve Mild pulmonic valvular regurgitation. Great Vessels The aortic root is normal size. Pericardium/Pleura There is no pericardial effusion. Interpretation Summary The left ventricle is borderline dilated. There is mild to moderate tricuspid regurgitation. Right ventricular systolic pressure is normal. Mild pulmonic valvular regurgitation. Ejection Fraction = 35-40%. Left ventricular systolic function is mild to moderately reduced. There is mild to moderate global hypokinesis of the left ventricle. The right ventricular systolic function is borderline reduced. The left atrial size is normal. The right atrium is borderline dilated. There is no Doppler evidence for an atrial septal defect. There is mild mitral valve thickening. There is mild mitral annular calcification. There is trace to mild mitral regurgitation. The aortic root is normal size. There is no pericardial effusion. Everett Pate MD 05/16/2019 12:11 PM
--- NOTE | 2019-05-16 14:34 | EKG ---
Test Reason : Blood Pressure : / mmHG Vent. Rate : 073 BPM Atrial Rate : 073 BPM P-R Int : 124 ms QRS Dur : 114 ms QT Int : 390 ms P-R-T Axes : 052 -34 006 degrees QTc Int : 429 ms NORMAL SINUS RHYTHM LEFT AXIS DEVIATION ABNORMAL ECG WHEN COMPARED WITH ECG OF 15-MAY-2019 20:37, NO SIGNIFICANT CHANGE WAS FOUND Confirmed by REJI NEW MD ([id number]) on 05/16/2019 2:33:58 PM Referred By: MARCELA ALEXANDER Confirmed By:REJI NEW MD
--- NOTE | 2019-05-16 14:34 | PN ---
Teaching Attending Note Name of Resident: Cordelia Valverde ATTENDING PHYSICIAN STATEMENT I saw and evaluated the patient. I reviewed the resident's note and discussed the case with the resident. I agree with the resident's findings and plan as documented. SUBJECTIVE:asymptomatic. denies CP, SOB, fever, chills, N/V/C/D OBJECTIVE: Last Vital Signs Temp Pulse Resp BP Pulse Ox 98 F 68 18 136/84 98 05/16/19 10:00 05/16/19 10:00 05/16/19 10:00 05/16/19 10:00 05/16/19 03:00 general NAD CV S1 S2 RRR no murmur/rub/gallop no chest wall tenderness ASSESSMENT AND PLAN: 39yo F wtih PMH continuous polysubstance abuse, systolic CHF, afib s/p cardioversion off anticoagulation, HTN adn dyslipidemia presented to the ER wt CP 1. r/o ACS- atypical and likely muscular however pt has risk factors and would benefit from stress test however Utox +cocaine and unable to do at this time. will obtain echo and cardio eval. will see if needs to be monitored and stress test done once utox is negative 2. CASA- likely dehydration. now resolved 3. continuous polysubstance abuse- (cocaine/THC/ETOH) no signs of withdrawal. explained risk factors with continued use. verbalized understanding. wants outpatient program. not intersted in [facility] 4. systolic CHF- awaiting repeat echo to assess EF. would need optimization of medications. will avoidance of betablocker given cocaine use. acei/asa/statin 5. afib- s/p cardioversion. off anticoagulation. unclear why. will defer to cardio 6. HTN- controlled 7. d/c home pending echo and cardio recommendations
--- NOTE | 2019-05-16 14:45 | EKG ---
Test Reason : Blood Pressure : / mmHG Vent. Rate : 069 BPM Atrial Rate : 069 BPM P-R Int : 128 ms QRS Dur : 104 ms QT Int : 384 ms P-R-T Axes : 055 -28 -11 degrees QTc Int : 411 ms NORMAL SINUS RHYTHM WITH SINUS ARRHYTHMIA NORMAL ECG WHEN COMPARED WITH ECG OF 05-AUG-2017 01:01, NO SIGNIFICANT CHANGE WAS FOUND Confirmed by REJI NEW MD ([id number]) on 05/16/2019 2:44:43 PM Referred By: Confirmed By:REJI NEW MD
[2019-05-16] MEDS: LISINOPRIL 10 MG TABLET (FP) PO SCH (15:35)
[2019-05-16] MEDS: ASPIRIN COATED 81 MG TABLET.EC PO SCH (16:20)
--- NOTE | 2019-05-16 17:58 | PN ---
Physical Exam: SUBJECTIVE: Patient seen and examined. Denies chest pain. Endorses last cocaine usage was Monday OBJECTIVE: Vital Signs Period Temp Pulse Resp BP Sys/Vill[place] Pulse Ox Last 24 Hr 98 F-98.4 F 67-88 17-18 125-142/73-114 98-98 GENERAL: The patient is awake, alert, and fully oriented, in no acute distress. HEAD: Normal with no signs of trauma. EYES: sclera anicteric, conjunctiva clear. ENT: Ears normal, nares patent, oropharynx clear without exudates, moist mucous membranes. NECK: Trachea midline, full range of motion, supple. LUNGS: Breath sounds equal, clear to auscultation bilaterally, no wheezes, no crackles, no accessory muscle use. HEART: Regular rate and rhythm, S1, S2 without murmur, rub or gallop. ABDOMEN: Soft, nontender, nondistended, no guarding, no rebound. EXTREMITIES: 2+ pulses, warm, well-perfused, no edema. NEUROLOGICAL: normal speech, normal gait PSYCH: Normal mood, normal affect. SKIN: Warm, dry, normal turgor, no rashes or lesions noted Laboratory Results - last 24 hr 05/15/19 05/15/19 05/15/19 20:52 20:52 20:52 WBC 5.5 RBC 4.73 Hgb 13.3 Hct 40.1 MCV 84.8 MCH 28.1 MCHC 33.1 RDW 12.9 Plt Count 158 MPV 9.8 Absolute Neuts (auto) 2.8 Neutrophils % 49.8 Lymphocytes % 38.0 D Monocytes % 7.9 Eosinophils % 3.7 Basophils % 0.6 Nucleated RBC % 0 PT with INR 11.20 INR 0.95 Sodium 140 Potassium 4.3 Chloride 106 Carbon Dioxide 29 Anion Gap 5 L BUN 24.9 H Creatinine 1.5 H Est GFR (CKD-EPI)AfAm 66.07 Est GFR (CKD-EPI)NonAf 57.01 Random Glucose 110 H Calcium 8.9 Magnesium 2.2 Total Bilirubin 0.3 AST 11 L ALT 18 Alkaline Phosphatase 96 Creatine Kinase 192 Creatine Kinase Index 0.7 CK-MB (CK-2) 1.5 Troponin I < 0.02 Total Protein 6.5 Albumin 4.0 Ur Random Sodium Ur Random Potassium Ur Random Chloride Opiates Screen Methadone Screen Barbiturate Screen Phencyclidine Screen Ur Amphetamines Screen MDMA (Ecstasy) Screen Benzodiazepines Screen Cocaine Screen U Marijuana (THC) Screen Alcohol, Quantitative 05/16/19 05/16/19 05/16/19 00:00 02:08 02:08 WBC RBC Hgb Hct MCV MCH MCHC RDW Plt Count MPV Absolute Neuts (auto) Neutrophils % Lymphocytes % Monocytes % Eosinophils % Basophils % Nucleated RBC % PT with INR INR Sodium Potassium Chloride Carbon Dioxide Anion Gap BUN Creatinine Est GFR (CKD-EPI)AfAm Est GFR (CKD-EPI)NonAf Random Glucose Calcium Magnesium Total Bilirubin AST ALT Alkaline Phosphatase Creatine Kinase 196 Creatine Kinase Index 0.8 CK-MB (CK-2) 1.6 Troponin I < 0.02 Total Protein Albumin Ur Random Sodium Ur Random Potassium Ur Random Chloride Opiates Screen Negative Methadone Screen Negative Barbiturate Screen Negative Phencyclidine Screen Negative Ur Amphetamines Screen Negative MDMA (Ecstasy) Screen Negative Benzodiazepines Screen Negative Cocaine Screen Positive A* U Marijuana (THC) Screen Negative Alcohol, Quantitative < 3.0 05/16/19 05/16/19 02:08 05:41 WBC RBC Hgb Hct MCV MCH MCHC RDW Plt Count MPV Absolute Neuts (auto) Neutrophils % Lymphocytes % Monocytes % Eosinophils % Basophils % Nucleated RBC % PT with INR INR Sodium 142 Potassium 3.8 Chloride 108 H Carbon Dioxide 30 Anion Gap 4 L BUN 21.8 H Creatinine 1.0 Est GFR (CKD-EPI)AfAm 107.87 Est GFR (CKD-EPI)NonAf 93.07 Random Glucose 107 H Calcium 8.6 Magnesium Total Bilirubin AST ALT Alkaline Phosphatase Creatine Kinase 150 Creatine Kinase Index 0.9 CK-MB (CK-2) 1.4 Troponin I < 0.02 Total Protein Albumin Ur Random Sodium 175 Ur Random Potassium 20.0 L Ur Random Chloride 166 Opiates Screen Methadone Screen Barbiturate Screen Phencyclidine Screen Ur Amphetamines Screen MDMA (Ecstasy) Screen Benzodiazepines Screen Cocaine Screen U Marijuana (THC) Screen Alcohol, Quantitative Active Medications Generic Name Dose Route Start Last Admin Trade Name Freq PRN Reason Stop Dose Admin Aspirin 81 mg 05/16/19 16:15 05/16/19 16:20 Ecotrin - PO 81 mg DAILY MAGDA Administration Atorvastatin Calcium 40 mg 05/16/19 22:00 Lipitor - PO HS MAGDA Heparin Sodium (Porcine) 5,000 unit 05/16/19 06:00 05/16/19 13:36 Heparin - SQ 5,000 unit TID MAGDA Administration Sodium Chloride 1,000 mls @ 42 mls/hr 05/16/19 07:00 05/16/19 12:11 Normal Saline - IV 42 mls/hr ASDIR MAGDA Administration Lisinopril 10 mg 05/16/19 14:30 05/16/19 15:35 Prinivil PO 10 mg DAILY MAGDA Administration Vital Signs Temp 98.2 F 05/16/19 14:10 Pulse 67 05/16/19 14:10 Resp 18 05/16/19 14:10 BP 138/73 05/16/19 14:10 Pulse Ox 98 05/16/19 03:00 Intake & Output 05/15/19 05/16/19 05/16/19 23:59 11:59 23:59 Intake Total 500 Balance 500 Weight 97.522 kg 103.873 kg Intake: IV 500 Normal Saline - 1,000 ml 500 @ 100 mls/hr IV ASDIR MAGDA Rx#:[id number] Other: Voiding Method Toilet Toilet Height 6 ft 2 in 6 ft 2 in Body Mass Index (BMI) 27.6 29.4 Weight Measurement Method Standing Scale ASSESSMENT/PLAN: 39M w/ pmh of HTN, HLD, ?Afib(s/p cardioversion), polysubstance abuse(cocaine, EtOH--past) presenting with atypical chest pain w/a SOB #atypical angina >troponins x3 -- neg >EKG(05/15/19): reported no acute ischemic changes but new T wave inversion in III compared to 2017 >Echo(November 2013): severely reduced LVEF w/ global hypokinesis >Echo(05/16/19): LVEF 35-40%. Global hypokinesis -cardiology consulted --no inpt stress test given Utox + (risks of precipitating vasopasm) --lipid panel --lisinopril 10 mg QD --CHADS VASC 1-2 (h/o HTN?)--AC and "bp med" (AVN lesly?) ultimately d/c'd by outpt cardio --rec outpt cardio f/u #CASA -- now resolved >1.5 now 1.0 -encourage PO intake #polysubstance abuse- (cocaine/THC/ETOH) -counseled on substance abstinence #chronic HTN -- normotensive currently -no home meds #DVT prophylaxis -subq hep #Dispo -medsurg -dc plan: likely home Visit type - Emergency Visit Emergency Visit: No - New Patient This patient is new to me today: No - Critical Care Critical Care patient: No ATTENDING PHYSICIAN STATEMENT I saw and evaluated the patient. I reviewed the resident's note and discussed the case with the resident. I agree with the resident's findings and plan as documented. SUBJECTIVE: OBJECTIVE: ASSESSMENT AND PLAN:
[2019-05-16] MEDS ORDERED: ACETAMINOPHEN 325 MG TABLET (FP) PO ONE (20:12)
[2019-05-16] MEDS ORDERED: ATORVASTATIN CA 40 MG TABLET (FP) PO SCH (22:00)
[2019-05-17] MEDS: HEPARIN NA (PORCINE) 5,000 UNITS/ML 1ML VIAL SQ SCH (05:52)
[2019-05-17 06:57] VITALS: TEMP 98
[2019-05-17 07:59] LABS: CHOLESTEROL 214 mg/dL (50-200); HDL CHOLESTEROL 33 mg/dL (40-60); LDL CHOLESTEROL (ONLY SJRH) 108 mg/dL (5-100); TRIGLYCERIDES 482 mg/dL (0-150)
[2019-05-17] MEDS: ASPIRIN COATED 81 MG TABLET.EC PO SCH (09:29)
[2019-05-17] MEDS: LISINOPRIL 10 MG TABLET (FP) PO SCH (09:29)
[2019-05-17 09:30] VITALS: BP 134/68; PULSE 68
--- NOTE | 2019-05-17 10:04 | PN ---
Progress Note, Physician Chief Complaint: Denies CP or SOB TELE: NSR - Current Medication List Current Medications: Active Medications Aspirin (Ecotrin -) 81 mg PO DAILY [facility] Last Admin: 05/17/19 09:29 Dose: 81 mg Atorvastatin Calcium (Lipitor -) 40 mg PO HS [facility] Last Admin: 05/16/19 22:00 Dose: 40 mg Heparin Sodium (Porcine) (Heparin -) 5,000 unit SQ TID [facility] Last Admin: 05/17/19 05:52 Dose: 5,000 unit Lisinopril (Prinivil) 10 mg PO DAILY [facility] Last Admin: 05/17/19 09:29 Dose: 10 mg - Objective Vital Signs: Vital Signs Temperature 98 F 05/17/19 09:00 Pulse Rate 68 05/17/19 09:00 Respiratory Rate 18 05/17/19 09:00 Blood Pressure 134/68 05/17/19 09:00 O2 Sat by Pulse Oximetry (%) 98 05/17/19 02:00 Constitutional: Yes: No Distress, Calm Cardiovascular: Yes: Regular Rate and Rhythm Respiratory: Yes: CTA Bilaterally Gastrointestinal: Yes: Soft Edema: No Neurological: Yes: Alert, Oriented ...Motor Strength: WNL Psychiatric: Yes: WNL Labs: CBC, BMP 05/15/19 20:52 05/16/19 05:41 INR, PTT INR 0.95 (0.83-1.09) 05/15/19 20:52 - ....Imaging EKG: Image Reviewed Assessment/Plan Assessment/Plan echo 2013: severe, global LV hypo. mild-mod RV hypo. no signif valve abnormality CXR: clear lungs/pleura ECG: NSR, LAFB, no path q's, no ST-T abn--no change vs prior 2017 tele: NSR chest pain: -low suspicion for PE based on very atypical sx's, not tachycardic or hypoxic -trop neg x 3. ECG nonischemic. -localization and fleeting duration of sx's, occuring at rest, and chronic/ unchanged for yrs makes obstructive CAD extremely unlikely, sx's not suggestive of cocaine induced coronary spasm -no inpt stress test given Utox + (risks of precipitating vasopasm). -rec outpt cardio f/u cardiomyopathy (2013)--? tachy vs etoh then: -no signs chf here, no sx's at home -rpt echo here shows EF 35-40 with mild RV dysfx; no sig valve disease; cont SHARRON but hesitant to start BB given + cocaine -outpt cardio f/u h/o atrial flutter: -sinus rhythm here -CHADS VASC 1-2 (h/o HTN?)--AC and "bp med" (AVN lesly?) ultimately d/c'd by outpt cardio -outpt cardio f/u rec'd etoh, counselled abuse: -cardiac and non-cardiac risks reviewed, cessation counselled HPL/TGs: -home meds not reconciled -check lipid panel HTN: -not on meds currently -BP transiently elevated in ER--now normal -observe trend
--- NOTE | 2019-05-17 11:22 | PN ---
Teaching Attending Note Name of Resident: Lalo Menon ATTENDING PHYSICIAN STATEMENT I saw and evaluated the patient. I reviewed the resident's note and discussed the case with the resident. I agree with the resident's findings and plan as documented. SUBJECTIVE:asymptomatic. no more CP. deneis Cp, SOB, fever, chills, N/V/C/D OBJECTIVE: Last Vital Signs Temp Pulse Resp BP Pulse Ox 98 F 68 18 134/68 100 05/17/19 09:00 05/17/19 09:00 05/17/19 09:00 05/17/19 09:00 05/17/19 10:00 general NAD CV S1 S2 RRR no murmur/rub/gallop no chest wall tenderness ASSESSMENT AND PLAN: 39yo F wtih PMH continuous polysubstance abuse, systolic CHF, afib s/p cardioversion off anticoagulation, HTN adn dyslipidemia presented to the ER wtih CP 1. r/o ACS- atypical and likely muscular however pt has risk factors and would benefit from stress test however Utox +cocaine and unable to do at this time. no more CP. optimized medications at this time. stressed importance of drug abstinence, medication compliance and folllowing up with cardio. states once he can show no cocaine in his system would benefit from stress testing. 2. CASA- likely dehydration. now resolved 3. continuous polysubstance abuse- (cocaine/THC/ETOH) no signs of withdrawal. explained risk factors with continued use. verbalized understanding. wants outpatient program. not interested in [facility] 4. systolic CHF-refused EF with hypokinesis. ideally would need stress and cath but because of utox not a candidate. cant start betablockers. on acei/statin/ asa. 5. afib- s/p cardioversion. off anticoagulation. unclear why. will defer to cardio 6. HTN- controlled 7. d/c home
--- NOTE | 2019-05-17 16:05 | DS ---
Physical Exam: SUBJECTIVE: Patient seen and examined OBJECTIVE: Vital Signs Period Temp Pulse Resp BP Sys/[place] Pulse Ox Last 24 Hr 97.8 F-98.5 F 62-82 17-20 110-134/57-70 98-100 PHYSICAL EXAM GENERAL: The patient is awake, alert, and fully oriented, in no acute distress. HEAD: Normal with no signs of trauma. EYES: PERRL, extraocular movements intact, sclera anicteric, conjunctiva clear. ENT: Ears normal, nares patent, oropharynx clear without exudates, moist mucous membranes. NECK: Trachea midline, full range of motion, supple. LUNGS: Breath sounds equal, clear to auscultation bilaterally, no wheezes, no crackles, no accessory muscle use. HEART: Regular rate and rhythm, S1, S2 without murmur, rub or gallop. ABDOMEN: Soft, nontender, nondistended, normoactive bowel sounds, no guarding, no rebound, no hepatosplenomegaly, no masses. EXTREMITIES: 2+ pulses, warm, well-perfused, no edema. NEUROLOGICAL: Cranial nerves II through XII grossly intact. Normal speech, gait not observed. PSYCH: Normal mood, normal affect. SKIN: Warm, dry, normal turgor, no rashes or lesions noted. LABS Laboratory Results - last 24 hr 05/17/19 05:49 Triglycerides 482 H Cholesterol 214 H Total LDL Cholesterol 108 H HDL Cholesterol 33 L HOSPITAL COURSE: Date of Admission:05/15/19 Date of Discharge: 05/17/19 Discharge Summary Problems reviewed: Yes Reason For Visit: CHEST PAIN WITH HIGH RISK FOR CARDIAC ETIOLOGY Condition: Stable - Instructions Diet, Activity, Other Instructions: You were evaluated in the hospital for complaint of chest pain. An echocardiogram was performed which showed reduced contraction of the heart. A health care administrator was consulted who recommended following up as outpatient. Bloodwork also showed high cholesterol. Please follow-up with the following physicians: -PCP, to discuss your recent hospitalization, further Blood pressure monitoring and repeating your cholesterol panel in 3 months while on Atorvastatin -[employer] Drill Operator Helper(Dr Sharp): to discuss further cardiac testing once abstinence from cocaine is achieved, and discuss history of rapid heart beat Medications: -NEW medications: atorvastatin 40mg nightly, aspirin 81mg daily, lisinopril 10mg daily Additional instructions: -avoid alcohol, smoking(tobacco or marijuana), illicit substances (Cocaine) -avoid excessive salt in your diet -stay well hydrated as some medications can cause muscle cramping Please seek immediate medical attention or go to the ED if you experience: -severe unremitting chest pain -sudden onset shortness of breath, severe leg swelling -fever, chills, nausea, vomiting, diarrhea Referrals: Taz Sharp MD [Staff Physician] - Disposition: HOME - Home Medications Comprehensive Discharge Medication List: Ambulatory Orders Aspirin Coated [Ecotrin -] 81 mg PO DAILY 30 Days #30 tablet.ec 05/17/19 Atorvastatin Ca [Lipitor] 40 mg PO HS 30 Days #30 tablet 05/17/19 Lisinopril [Prinivil] 10 mg PO DAILY 30 Days #30 tablet 05/17/19 ATTENDING PHYSICIAN STATEMENT I saw and evaluated the patient. I reviewed the resident's note and discussed the case with the resident. I agree with the resident's findings and plan as documented. SUBJECTIVE: OBJECTIVE: ASSESSMENT AND PLAN:
== END 2019-05-17 13:52 | disposition home or self-care (01) ==
LOC: JER 20:28 → JERBED 23:57 → J4W 05-16 02:53
PROVIDERS: ADMIT Internal Medicine; ATTEND Internal Medicine
CPT/HCPCS: 36415; 71046-TC-FY; 80048; 80053; 80061; 80307; 82436; 82550; 82553; 83721; 83735; 84133; 84300; 84484; 85025; 85610; 93005; 93010; 93306-TC; 99285-25; G0378; J0131; J1644; J7030